=== PATIENT | female | born 1995 | race Two or more races ===

== ENCOUNTER 2017-07-01 03:39 | Emergency (ER) | payer SELFPAY ==
[2017-07-01] MEDS: LIDOCAINE/MYLANTA 40 ML BTL PO (06:40)
[2017-07-01] MEDS: ONDANSETRON (ODT) 4 MG TAB ODT (06:41)
[2017-07-01 07:09] LABS: ADD MAN DIFF? NO
[2017-07-01 07:11] LABS: BASOPHIL # 0.1 10^3/ul (0.0-0.1); BASOPHILS % 0.4 % (0.0-2.0); EOSINOPHILS # 0.1 10^3/ul (0.0-0.5); HEMATOCRIT 27.6 % (37.0-47.0); HEMOGLOBIN 8.5 g/dl (12.0-16.0); LYMPHOCYTES % 16.5 % (15.0-51.0); MEAN CORPUSCULAR HEMOGLOBIN 20.2 pg (29.0-33.0); MEAN CORPUSCULAR HGB CONC 30.8 g/dl (32.0-37.0); MEAN CORPUSCULAR VOLUME 65.7 fl (82.0-101.0); MEAN PLATELET VOLUME 10.7 fl (7.4-10.4); MONOCYTES % 8.1 % (0.0-11.0); NEUTROPHIL # 8.8 10^3/ul (1.6-7.5); NEUTROPHILS % 73.7 % (39.0-77.0); PLATELET COUNT 292 10^3/UL (140-415); RED CELL DISTRIBUTION WIDTH 17.1 % (11.5-14.5)
[2017-07-01 07:20] LABS: ADD UMIC NO; UR ASCORBIC ACID NEGATIVE (NEGATIVE); UR BACTERIA FEW /HPF (NONE SEEN); UR BILIRUBIN (Dip) NEGATIVE (NEGATIVE); UR BLOOD (Dip) NEGATIVE (NEGATIVE); UR CLARITY SLIGHTLY CLOUDY (CLEAR); UR COLOR YELLOW (YELLOW); UR GLUCOSE (Dip) NEGATIVE (NEGATIVE); UR KETONES (Dip) NEGATIVE (NEGATIVE); UR LEUKOCYTE ESTERASE (Dip) NEGATIVE Leu/ul (NEGATIVE); UR MUCUS FEW /HPF (NONE SEEN); UR NITRITE (Dip) NEGATIVE (NEGATIVE); UR RBC 1 /HPF (0-5); UR SPECIFIC GRAVITY (Dip) 1.024 (1.003-1.030); UR SQUAMOUS EPITHELIAL CELL FEW /HPF (FEW); UR TOTAL PROTEIN (Dip) NEGATIVE (NEGATIVE); UR UROBILINOGEN (Dip) 1+ mg/dL (NEGATIVE); UR WBC 2 /HPF (0-5)
[2017-07-01 07:37] LABS: ALANINE AMINOTRANSFERASE 34 IU/L (13-69); ALBUMIN 3.7 g/dl (3.3-4.9); ALBUMIN/GLOBULIN RATIO 0.97; ALKALINE PHOSPHATASE 96 IU/L (42-121); ANION GAP 14 (8-16); ASPARTATE AMINO TRANSFERASE 24 IU/L (15-46); BILIRUBIN,INDIRECT 0.1 mg/dl (0-1.1); BILIRUBIN,TOTAL 0.1 mg/dl (0.2-1.3); BLOOD UREA NITROGEN 14 mg/dl (7-20); CALCIUM 8.5 mg/dl (8.4-10.2); CARBON DIOXIDE 24 mmol/L (21-31); CHLORIDE 105 mmol/L (97-110); CREATININE 0.61 mg/dl (0.44-1.00); GLUCOSE 98 mg/dl (70-220); LIPASE 97 U/L (23-300); POTASSIUM 3.8 mmol/L (3.5-5.1); SODIUM 139 mmol/L (135-144); TOTAL PROTEIN 7.5 g/dl (6.1-8.1)
[2017-07-01] MEDS: SOD CHLORIDE 0.9% 500 ML IV (08:01)
[2017-07-01] MEDS: KETOROLAC 30 MG INJ IV (08:02)
== END 2017-07-01 09:03 | disposition home or self-care (01) ==
LOC: FTE 03:39
DX: K80.70 Calculus of gallbladder and bile duct without cholecystitis without obstruction (principal); D64.9 Anemia, unspecified
CPT/HCPCS: 36415; 76705; 80053; 81001; 81003; 83690; 85025; 96374; 99285-25

== ENCOUNTER 2018-04-06 16:28 | Emergency (ER) | payer SELFPAY ==
[2018-04-06 17:17] LABS: WHITE BLOOD COUNT 8.9 10^3/ul (4.8-10.8)
[2018-04-06 17:17] LABS: ABNORMAL IP MESSAGE 1; HEMATOCRIT 36.3 % (37.0-47.0); HEMOGLOBIN 11.1 g/dl (12.0-16.0); MEAN CORPUSCULAR HEMOGLOBIN 23.1 pg (29.0-33.0); MEAN CORPUSCULAR HGB CONC 30.6 g/dl (32.0-37.0); MEAN CORPUSCULAR VOLUME 75.6 fl (82.0-101.0); MEAN PLATELET VOLUME 10.5 fl (7.4-10.4); PLATELET COUNT 285 10^3/UL (140-415); RED CELL DISTRIBUTION WIDTH 23.2 % (11.5-14.5)
[2018-04-06 17:20] LABS: ADD MAN DIFF? YES; POSITIVE DIFF @See below
[2018-04-06 17:25] LABS: ADD UMIC YES; UR ASCORBIC ACID NEGATIVE (NEGATIVE); UR BILIRUBIN (Dip) NEGATIVE (NEGATIVE); UR BLOOD (Dip) 3+ mg/dL (NEGATIVE); UR CLARITY CLOUDY (CLEAR); UR COLOR RED (YELLOW); UR GLUCOSE (Dip) NEGATIVE (NEGATIVE); UR KETONES (Dip) NEGATIVE (NEGATIVE); UR LEUKOCYTE ESTERASE (Dip) NEGATIVE Leu/ul (NEGATIVE); UR MUCUS FEW /HPF (NONE SEEN); UR NITRITE (Dip) NEGATIVE (NEGATIVE); UR RBC > 182 /HPF (0-5); UR SPECIFIC GRAVITY (Dip) 1.015 (1.003-1.030); UR SQUAMOUS EPITHELIAL CELL FEW /HPF (FEW); UR TOTAL PROTEIN (Dip) 2+ mg/dl (NEGATIVE); UR UROBILINOGEN (Dip) NEGATIVE (NEGATIVE); UR WBC 61 /HPF (0-5)
[2018-04-06 18:02] LABS: ANISOCYTOSIS 2+ (0-0); BASOPHILS % (M) 1 % (0-2); EOSINOPHILS % (M) 2 % (0-7); GIANT THROMBO% (M) 2 % (0-0); LYMPHOCYTES #M 2.4 10^3/ul (0.8-2.9); LYMPHOCYTES % (M) 28 % (15-51); MICROCYTOSIS 2+ (0-0); MONOCYTE #M 0.5 10^3/ul (0.3-0.9); MONOCYTES % (M) 6 % (0-11); PLATELET ESTIMATE NORMAL; POLYCHROMASIA 2+ (0-0); SEGMENTED NEUTROPHILS (M) % 63 % (39-77); SMUDGE%M 3 % (0-0)
== END 2018-04-06 20:44 | disposition home or self-care (01) ==
LOC: FTE 16:28
DX: O03.9 Complete or unspecified spontaneous abortion without complication (principal); R10.2 Pelvic and perineal pain; Z3A.09 9 weeks gestation of pregnancy
CPT/HCPCS: 36415; 76801; 76817; 81001; 84702; 85025; 86900; 86901; 99284-25

== ENCOUNTER 2018-04-16 16:49 | Day surgery (SDC) | payer MEDICAID ==
[2018-04-16] MEDS ORDERED: PROPOFOL 20 ML (17:25)
[2018-04-16] MEDS ORDERED: FENTAnyl 50 MCG/ML VIAL (17:25)
[2018-04-16] MEDS ORDERED: KETOROLAC 30 MG INJ (17:44)
[2018-04-16] MEDS ORDERED: DEXAMETHASONE 4 MG/ML 1 ML INJ (17:45)
[2018-04-16] MEDS ORDERED: ONDANSETRON 4 MG INJ (17:46)
[2018-04-16] MEDS ORDERED: METOCLOPRAMIDE 10 MG INJ IV (18:00)
[2018-04-16] MEDS ORDERED: OXYCODONE/ACETAMINOPHEN (5/325) TAB PO ×2 (18:00)
[2018-04-16] MEDS ORDERED: LABETALOL HCL 20MG INJ IV (18:00)
[2018-04-16] MEDS ORDERED: hydrALAzine 20 MG INJ IV (18:00)
[2018-04-16] MEDS ORDERED: KETOROLAC 30 MG INJ IV (18:00)
[2018-04-16] MEDS ORDERED: FENTAnyl 50 MCG/ML VIAL IV ×3 (18:00)
[2018-04-16] MEDS ORDERED: ONDANSETRON 4 MG INJ IV (18:00)
[2018-04-16] MEDS ORDERED: ALBUTEROL 0.083% (NEB) 2.5 MG/3 ML AMP HHN (18:00)
[2018-04-16] MEDS ORDERED: EPHEDrine SULFATE 50 MG/5 ML SYG IV (18:00)
[2018-04-16] MEDS ORDERED: DIPHENHYDRAMINE 50 MG INJ IV (18:00)
[2018-04-16] MEDS ORDERED: MIDAZOLAM 1 MG/ML 2 ML INJ (18:11)
[2018-04-16] MEDS ORDERED: MEPERIDINE 25 MG INJ (18:15)
== END 2018-04-16 20:15 | disposition home or self-care (01) ==
LOC: SDS 16:49
DX: O03.4 Incomplete spontaneous abortion without complication (principal)
CPT/HCPCS: 59812

== ENCOUNTER 2018-12-30 21:37 | Inpatient (IN) | payer MEDICAID ==
[2018-12-30 22:33] LABS: ADD UMIC YES; UR ASCORBIC ACID NEGATIVE (NEGATIVE); UR BILIRUBIN (Dip) NEGATIVE (NEGATIVE); UR BLOOD (Dip) 3+ mg/dL (NEGATIVE); UR CLARITY SLIGHTLY CLOUDY (CLEAR); UR COLOR YELLOW (YELLOW); UR GLUCOSE (Dip) NEGATIVE (NEGATIVE); UR KETONES (Dip) NEGATIVE (NEGATIVE); UR LEUKOCYTE ESTERASE (Dip) 1+ Leu/ul (NEGATIVE); UR NITRITE (Dip) NEGATIVE (NEGATIVE); UR RBC 28 /HPF (0-5); UR SPECIFIC GRAVITY (Dip) 1.008 (1.003-1.030); UR SQUAMOUS EPITHELIAL CELL FEW /HPF (FEW); UR TOTAL PROTEIN (Dip) NEGATIVE (NEGATIVE); UR UROBILINOGEN (Dip) NEGATIVE (NEGATIVE); UR WBC 5 /HPF (0-5)
[2018-12-31] MEDS: LACTATED RINGER'S 1,000 ML IV ×3 (00:35→16:43)
[2018-12-31] MEDS: AMPICILLIN 2 GM/NS (PMX) 100 ML IV (00:59)
[2018-12-31] MEDS: ACETAMINOPHEN 325 MG TAB PO ×2 (01:41→18:29)
[2018-12-31 02:07] LABS: ADD MAN DIFF? NO
[2018-12-31 02:11] LABS: BASOPHIL # 0.1 10^3/ul (0.0-0.1); BASOPHILS % 0.4 % (0.0-2.0); EOSINOPHILS # 0.2 10^3/ul (0.0-0.5); EOSINOPHILS % 1.1 % (0.0-7.0); HEMATOCRIT 32.8 % (37.0-47.0); HEMOGLOBIN 10.6 g/dl (12.0-16.0); LYMPHOCYTES # 2.1 10^3/ul (0.8-2.9); LYMPHOCYTES % 15.7 % (15.0-51.0); MEAN CORPUSCULAR HEMOGLOBIN 26.4 pg (29.0-33.0); MEAN CORPUSCULAR HGB CONC 32.3 g/dl (32.0-37.0); MEAN CORPUSCULAR VOLUME 81.6 fl (82.0-101.0); MEAN PLATELET VOLUME 11.9 fl (7.4-10.4); MONOCYTE # 1.2 10^3/ul (0.3-0.9); MONOCYTES % 9.2 % (0.0-11.0); NEUTROPHIL # 9.8 10^3/ul (1.6-7.5); NEUTROPHILS % 73.1 % (39.0-77.0); PLATELET COUNT 253 10^3/UL (140-415); RED BLOOD COUNT 4.02 10^6/ul (4.20-5.40)
[2018-12-31 02:11] LABS: WHITE BLOOD COUNT 13.4 10^3/ul (4.8-10.8)
[2018-12-31 02:28] LABS: ALANINE AMINOTRANSFERASE 18 IU/L (13-69); ALBUMIN 3.5 g/dl (3.3-4.9); ALKALINE PHOSPHATASE 82 IU/L (42-121); ANION GAP 11 (5-13); ASPARTATE AMINO TRANSFERASE 18 IU/L (15-46); BILIRUBIN,INDIRECT 0.2 mg/dl (0-1.1); BILIRUBIN,TOTAL 0.2 mg/dl (0.2-1.3); BLOOD UREA NITROGEN 6 mg/dl (7-20); CALCIUM 8.7 mg/dl (8.4-10.2); CARBON DIOXIDE 22 mmol/L (21-31); CHLORIDE 109 mmol/L (97-110); CREATININE 0.37 mg/dl (0.44-1.00); Estimated GFR > 60 mL/min (>60); GLUCOSE 74 mg/dl (70-220); POTASSIUM 3.7 mmol/L (3.5-5.1); SODIUM 142 mmol/L (135-144)
[2018-12-31 02:34] LABS: INR 0.91; PARTIAL THROMBOPLASTIN TIME 32.1 Sec (23.0-35.0); PROTIME 12.4 Sec (11.9-14.9)
[2018-12-31] MEDS: AZITHROMYCIN 250 MG in SOD CHLORIDE 0.9% 250 ML IVPB (02:44)
[2018-12-31 04:13] LABS: AMPHETAMINE/METHAMPHETAMINE Negative (NEGATIVE); BARBITURATES Negative (NEGATIVE); CANNABINOIDS Negative (NEGATIVE); COCAINE Negative (NEGATIVE); OPIATES Negative (NEGATIVE)
[2018-12-31 04:14] LABS: BENZODIAZEPINES Negative (NEGATIVE)
[2018-12-31] MEDS: AL HYDROX/MG HYDROX/SIMETH 30 ML CUP PO ×2 (04:15→20:29)
[2018-12-31] MEDS: AMPICILLIN 1 GM/NS (PMX) 50 ML IV ×6 (05:10→23:54)
[2018-12-31] MEDS: DOCUSATE SODIUM 100 MG CAP PO (09:05)
[2018-12-31] MEDS: PRENATAL VITAMIN PO (09:06)
[2018-12-31] MEDS: FERROUS SULFATE (EC) 325 MG TAB PO (09:06)
[2018-12-31 23:01] LABS: RAPID PLASMA REAGIN NONREACTIVE (NR)
[2019-01-01] MEDS: AZITHROMYCIN 250 MG in SOD CHLORIDE 0.9% 250 ML IVPB (02:00)
[2019-01-01] MEDS: LACTATED RINGER'S 1,000 ML IV ×3 (02:03→19:51)
[2019-01-01] MEDS: AMPICILLIN 1 GM/NS (PMX) 50 ML IV ×3 (04:12→13:00)
[2019-01-01] MEDS: ACETAMINOPHEN 325 MG TAB PO ×2 (07:47→22:29)
[2019-01-01] MEDS: FERROUS SULFATE (EC) 325 MG TAB PO (10:11)
[2019-01-01] MEDS: PRENATAL VITAMIN PO (10:11)
[2019-01-01] MEDS: DOCUSATE SODIUM 100 MG CAP PO (10:11)
[2019-01-01 11:34] LABS: ADD MAN DIFF? NO
[2019-01-01 11:40] LABS: WHITE BLOOD COUNT 13.5 10^3/ul (4.8-10.8)
[2019-01-01 11:40] LABS: BASOPHIL # 0.1 10^3/ul (0.0-0.1); BASOPHILS % 0.4 % (0.0-2.0); EOSINOPHILS # 0.1 10^3/ul (0.0-0.5); HEMATOCRIT 32.9 % (37.0-47.0); HEMOGLOBIN 10.6 g/dl (12.0-16.0); LYMPHOCYTES # 1.8 10^3/ul (0.8-2.9); LYMPHOCYTES % 13.4 % (15.0-51.0); MEAN CORPUSCULAR HEMOGLOBIN 26.4 pg (29.0-33.0); MEAN CORPUSCULAR HGB CONC 32.2 g/dl (32.0-37.0); MEAN CORPUSCULAR VOLUME 81.8 fl (82.0-101.0); MEAN PLATELET VOLUME 11.3 fl (7.4-10.4); MONOCYTES % 7.6 % (0.0-11.0); NEUTROPHIL # 10.4 10^3/ul (1.6-7.5); PLATELET COUNT 253 10^3/UL (140-415); RED BLOOD COUNT 4.02 10^6/ul (4.20-5.40); RED CELL DISTRIBUTION WIDTH 15.9 % (11.5-14.5)
[2019-01-01] MEDS: CEPHALEXIN 500 MG CAP PO (22:39)
[2019-01-02] MEDS: LACTATED RINGER'S 1,000 ML IV ×4 (04:32→20:42)
[2019-01-02] MEDS: AL HYDROX/MG HYDROX/SIMETH 30 ML CUP PO (04:39)
[2019-01-02] MEDS: ACETAMINOPHEN 325 MG TAB PO ×3 (06:24→21:42)
[2019-01-02] MEDS: CEPHALEXIN 500 MG CAP PO ×3 (06:24→21:42)
[2019-01-02] MEDS: PRENATAL VITAMIN PO (08:53)
[2019-01-02] MEDS: FERROUS SULFATE (EC) 325 MG TAB PO (08:53)
[2019-01-02] MEDS: DOCUSATE SODIUM 100 MG CAP PO (09:00)
[2019-01-03] MEDS: LACTATED RINGER'S 1,000 ML IV ×3 (05:53→22:27)
[2019-01-03] MEDS: CEPHALEXIN 500 MG CAP PO (05:53)
[2019-01-03] MEDS ORDERED: OXYTOCIN 30 UNITS/LR 500 ML IV ×2 (10:30)
[2019-01-03] MEDS ORDERED: MISOPROSTOL 200 MCG TAB PR (10:30)
[2019-01-03] MEDS ORDERED: LIDOCAINE 1% (MPF) 30 ML INJ INJ (10:30)
[2019-01-03] MEDS ORDERED: CARBOPROST 250 MCG INJ IM (10:30)
[2019-01-03] MEDS ORDERED: METHYLERGONOVINE 0.2 MG INJ IM (10:30)
[2019-01-03] MEDS ORDERED: AMPICILLIN 2 GM/NS (PMX) 100 ML (10:42)
[2019-01-03] MEDS: AMPICILLIN 2 GM/NS (PMX) 100 ML IV (10:51)
[2019-01-03] MEDS: AMPICILLIN 1 GM/NS (PMX) 50 ML IV ×3 (14:37→22:27)
[2019-01-03 14:51] LABS: HEPATITIS B SURFACE ANTIGEN NEGATIVE (NEGATIVE)
[2019-01-03] MEDS: MISOPROSTOL 50 MCG CAPSULE PO (17:09)
[2019-01-03] MEDS: MISOPROSTOL 200 MCG TAB PO (23:49)
[2019-01-04] MEDS: AMPICILLIN 1 GM/NS (PMX) 50 ML IV ×4 (02:29→14:31)
[2019-01-04] MEDS: LACTATED RINGER'S 1,000 ML IV ×3 (03:00→16:55)
[2019-01-04] MEDS: BUTORPHANOL 2 MG INJ IV ×3 (03:58→16:10)
[2019-01-04] MEDS: OXYTOCIN 30 UNITS/LR 500 ML IV ×2 (06:41→18:18)
[2019-01-04] MEDS: ONDANSETRON 4 MG INJ IV (07:57)
[2019-01-04 09:59] LABS: ADD MAN DIFF? NO
[2019-01-04 10:06] LABS: BASOPHIL # 0.1 10^3/ul (0.0-0.1); BASOPHILS % 0.4 % (0.0-2.0); EOSINOPHILS % 0.2 % (0.0-7.0); HEMATOCRIT 37.1 % (37.0-47.0); HEMOGLOBIN 12.2 g/dl (12.0-16.0); LYMPHOCYTES # 1.3 10^3/ul (0.8-2.9); LYMPHOCYTES % 8.1 % (15.0-51.0); MEAN CORPUSCULAR HEMOGLOBIN 26.2 pg (29.0-33.0); MEAN CORPUSCULAR HGB CONC 32.9 g/dl (32.0-37.0); MEAN CORPUSCULAR VOLUME 79.6 fl (82.0-101.0); MONOCYTE # 0.8 10^3/ul (0.3-0.9); MONOCYTES % 5.1 % (0.0-11.0); NEUTROPHIL # 13.9 10^3/ul (1.6-7.5); NEUTROPHILS % 85.6 % (39.0-77.0); PLATELET COUNT 286 10^3/UL (140-415); RED BLOOD COUNT 4.66 10^6/ul (4.20-5.40); RED CELL DISTRIBUTION WIDTH 15.6 % (11.5-14.5)
[2019-01-04 10:06] LABS: WHITE BLOOD COUNT 16.2 10^3/ul (4.8-10.8)
[2019-01-04 10:22] LABS: INR 0.97
[2019-01-04] MEDS: MISOPROSTOL 200 MCG TAB SL ×2 (18:16→18:45)
[2019-01-04] MEDS ORDERED: WITCH HAZEL/GLYCERIN PAD PR (22:30)
[2019-01-04] MEDS ORDERED: OXYCODONE/ASPIRIN (4.88/325) TAB PO ×2 (22:30)
[2019-01-04] MEDS ORDERED: LANOLIN HPA 1 PKT TOP (22:30)
[2019-01-04] MEDS ORDERED: CARBOPROST 250 MCG INJ IM (22:30)
[2019-01-04] MEDS ORDERED: OXYTOCIN 30 UNITS/LR 500 ML IV (22:30)
[2019-01-04] MEDS ORDERED: MISOPROSTOL 200 MCG TAB PR (22:30)
[2019-01-04] MEDS ORDERED: METHYLERGONOVINE 0.2 MG INJ IM (22:30)
[2019-01-04] MEDS ORDERED: BENZOCAINE 20% 56 ML SPRAY TOP (22:30)
[2019-01-04] MEDS ORDERED: ZOLPIDEM 5 MG TAB PO (22:30)
[2019-01-04] MEDS: IBUPROFEN 600 MG TAB PO (23:32)
[2019-01-04] MEDS: SENNA/DOCUSATE NA (8.6MG/50MG) TAB PO (23:32)
[2019-01-05 04:50] LABS: ADD MAN DIFF? NO
[2019-01-05 04:58] LABS: WHITE BLOOD COUNT 13.2 10^3/ul (4.8-10.8)
[2019-01-05 04:58] LABS: BASOPHIL # 0.1 10^3/ul (0.0-0.1); BASOPHILS % 0.5 % (0.0-2.0); EOSINOPHILS # 0.2 10^3/ul (0.0-0.5); EOSINOPHILS % 1.4 % (0.0-7.0); HEMATOCRIT 32.9 % (37.0-47.0); HEMOGLOBIN 10.9 g/dl (12.0-16.0); LYMPHOCYTES # 2.2 10^3/ul (0.8-2.9); LYMPHOCYTES % 16.5 % (15.0-51.0); MEAN CORPUSCULAR HEMOGLOBIN 26.3 pg (29.0-33.0); MEAN CORPUSCULAR HGB CONC 33.1 g/dl (32.0-37.0); MEAN CORPUSCULAR VOLUME 79.3 fl (82.0-101.0); MEAN PLATELET VOLUME 11.1 fl (7.4-10.4); MONOCYTE # 0.8 10^3/ul (0.3-0.9); MONOCYTES % 6.1 % (0.0-11.0); NEUTROPHIL # 9.9 10^3/ul (1.6-7.5); NEUTROPHILS % 74.8 % (39.0-77.0); PLATELET COUNT 249 10^3/UL (140-415); RED BLOOD COUNT 4.15 10^6/ul (4.20-5.40); RED CELL DISTRIBUTION WIDTH 15.7 % (11.5-14.5)
[2019-01-05] MEDS: IBUPROFEN 600 MG TAB PO ×3 (06:11→17:38)
[2019-01-05] MEDS: SENNA/DOCUSATE NA (8.6MG/50MG) TAB PO ×2 (08:32→20:50)
[2019-01-06] MEDS: IBUPROFEN 600 MG TAB PO ×3 (06:00→13:17)
[2019-01-06] MEDS: SENNA/DOCUSATE NA (8.6MG/50MG) TAB PO (09:36)
[2019-01-06] MEDS: DIPHTH/TET/ACEL PERTUSS (ADULT) 0.5 ML VIAL IM* (11:33)
== END 2019-01-06 15:55 | disposition home or self-care (01) | DRG 805 ==
LOC: OBT 21:37 → MS1 01-04 21:57 → L-D 21:38 → OBT 23:30 → L-D 23:30
PROC: 10E0XZZ Delivery of Products of Conception, External Approach (ICD-10-PCS; principal; 2019-01-04)
PROC: 3E033VJ Introduction of Other Hormone into Peripheral Vein, Percutaneous Approach (ICD-10-PCS; 2019-01-04)
DX: O60.12X0 Preterm labor second trimester with preterm delivery second trimester, not applicable or unspecified (principal); O34.32 Maternal care for cervical incompetence, second trimester; Z37.1 Single stillbirth; O23.42 Unspecified infection of urinary tract in pregnancy, second trimester; Z3A.20 20 weeks gestation of pregnancy
CPT/HCPCS: 76815; 76817; 80053; 80307; 81001; 85025; 85610; 85730; 86592; 86850; 86900; 86901; 87086; 87340; 90715